=== PATIENT | male | born 1975 | race Caucasian/White ===

== ENCOUNTER 2017-03-07 22:21 | Emergency (ER) | payer SELFPAY ==
[~2017-03-07] VITALS: Ht 188 cm; Wt 88.5 kg
--- NOTE | 2017-03-08 01:09 | NUR ---
Patient discharged to home in stable conditon. Written and verbal after care instructions given. Patient verbalizes understanding of instructions. WALKED OUT OF ER WITH STEADY GAIT WITH NO DISTRESS NOTED
[2017-03-08 01:10] VITALS: BP 128/70
== END 2017-03-08 01:11 | disposition home or self-care (01) ==
LOC: ER 22:31
DX: M23.92 Unspecified internal derangement of left knee (principal); S93.402A Sprain of unspecified ligament of left ankle, initial encounter; X58.XXXA Exposure to other specified factors, initial encounter; Y93.89 Activity, other specified; Y99.8 Other external cause status; Y92.89 Other specified places as the place of occurrence of the external cause
CPT/HCPCS: 29505; 73560; 73610; 99284; A4663